=== PATIENT | male | born 1975 | race Caucasian/White ===

== ENCOUNTER 2023-06-11 09:30 | Outpatient (CLI) | payer OTHER | END 2023-06-11 09:31 | disposition home or self-care (01) | LOC: PET 09:30 | PROVIDERS: ATTEND Nurse Practitioner Family | DX: R59.0 Localized enlarged lymph nodes (principal); R93.7 Abnormal findings on diagnostic imaging of other parts of musculoskeletal system; I31.8 Other specified diseases of pericardium | CPT/HCPCS: 78816; A9552 ==